=== PATIENT | male | born 1940 | race Caucasian/White ===

== ENCOUNTER → 2020-09-02 | Outpatient (CLI) | payer MEDICARE, BC ==
[~2020-09-02] MED LIST: AMLO5TAB4 PO; ASPI81TA45 PO; ATOR20TA37 PO; NAPR220C2 PO; SILD100T PO; omeprazole PO; testosterone cream TD
[2020-09-02 11:43] LABS: BASOPHILS % (AUTO) 0 % (0-1); EOSINOPHILS % (AUTO) 3 % (1-7); LYMPHOCYTES % (AUTO) 21 % (22-44); MEAN CORPUSCULAR HEMOGLOBIN 32.8 pg (27.5-34.5); MEAN CORPUSCULAR HGB CONC 33.5 g/dL (33.2-36.2); MEAN PLATELET VOLUME 7.3 fL (7.4-10.4); MONOCYTES % (AUTO) 12 % (2-9); NEUTROPHILS % (AUTO) 64 % (42-75); PLATELET COUNT 197 x10^3/uL (130-400); RED BLOOD COUNT 4.91 x10^6/uL (4.38-5.82); RED CELL DISTRIBUTION WIDTH 14.1 % (9.4-14.8)
[2020-09-02 11:53] LABS: ANION GAP 5 mmol/L (5-15); CALCIUM 9.1 mg/dL (8.5-10.1); CHLORIDE 110 mmol/L (98-107); CREATININE 0.89 mg/dL (0.7-1.3)
== END | disposition home or self-care (01) ==
LOC: STAR 10:30
PROVIDERS: ATTEND Urology
DX: Z01.818 Encounter for other preprocedural examination (principal); N35.919 Unspecified urethral stricture, male, unspecified site; Z20.822 Contact with and (suspected) exposure to COVID-19
CPT/HCPCS: 36415; 80048; 85025; 87086; 93005; U0003; U0005

== ENCOUNTER 2020-09-06 07:47 | Day surgery (SDC) | payer MEDICARE, BC ==
[~2020-09-06] VITALS: Ht 182.9 cm; Wt 83.9 kg
[2020-09-06] MEDS ORDERED: PROPOFOL 10 MG/ML, 20ML ONE (08:00)
[2020-09-06] MEDS ORDERED: FENTANYL PF 250 MCG/5ML ONE (08:00)
[2020-09-06] MEDS ORDERED: ONDANSETRON 2MG/ML, 2ML ONE (08:00)
[2020-09-06] MEDS ORDERED: CEFAZOLIN 1,000 MG ONE (08:00)
[2020-09-06 08:12] VITALS: BP 160/85
[2020-09-06] MEDS ORDERED: CHLORHEXIDINE 15 ML UDC ONE (08:14)
[2020-09-06] MEDS ORDERED: CHLORHEXIDINE 15 ML UDC PO ONE (08:30)
[2020-09-06] MEDS ORDERED: LACTATED RINGERS 1,000 ML IV SCH (08:30)
[2020-09-06] MEDS ORDERED: OMNIPAQUE 350 MG/ML, 50 ML BOTTLE ONE (08:38)
[2020-09-06] MEDS ORDERED: PROMETHAZINE 25 MG/ML, 1ML IVPush PRN (09:00)
[2020-09-06] MEDS ORDERED: LABETALOL 5MG/ML, 20ML IV PRN (09:00)
[2020-09-06] MEDS ORDERED: morphine SULFATE 10 MG/ML, 1ML IVPush PRN (09:00)
[2020-09-06] MEDS ORDERED: OXYcodone 5 MG/5 ML ORAL.SOL UDC PO PRN (09:00)
[2020-09-06] MEDS ORDERED: hydrALAzine 20 MG/ML, 1ML IV PRN (09:00)
[2020-09-06] MEDS ORDERED: MEPERIDINE/PF 25MG/0.5ML IVPush PRN (09:00)
[2020-09-06] MEDS ORDERED: ACETAMINOPHEN 325 MG TABLET PO PRN (09:00)
[2020-09-06] MEDS ORDERED: FENTANYL PF 100 MCG/2ML IV PRN (09:00)
[2020-09-06] MEDS ORDERED: HALOPERIDOL 5 MG/ML IV PRN (09:00)
[2020-09-06] MEDS ORDERED: HYDROmorphone 1 MG/ML, 1ML INJ IVPush PRN (09:00)
[2020-09-06] MEDS ORDERED: OMNIPAQUE 350 MG/ML, 50 ML BOTTLE IV ONE (09:27)
== END 2020-09-06 11:10 | disposition home or self-care (01) ==
LOC: OUT 07:47
PROVIDERS: ATTEND Urology
DX: N35.819 Other urethral stricture, male, unspecified site (principal); N32.0 Bladder-neck obstruction; F52.21 Male erectile disorder; N39.41 Urge incontinence; N40.1 Benign prostatic hyperplasia with lower urinary tract symptoms; R35.0 Frequency of micturition; R39.16 Straining to void; R39.12 Poor urinary stream; K21.9 Gastro-esophageal reflux disease without esophagitis; I10 Essential (primary) hypertension; E78.5 Hyperlipidemia, unspecified; Z79.82 Long term (current) use of aspirin; Z79.899 Other long term (current) drug therapy; Z85.46 Personal history of malignant neoplasm of prostate; Z87.891 Personal history of nicotine dependence; Z88.5 Allergy status to narcotic agent; Z90.79 Acquired absence of other genital organ(s)
CPT/HCPCS: 51610; 52000; 74450; C1769; J0690; J2405; J2704; J3010; J7120; Q9967; 51600; 74430